=== PATIENT | male | born 1945 | race Caucasian/White ===

== ENCOUNTER 2023-04-12 14:26 | Inpatient (IN) | payer MEDICARE ==
[2023-04-12 23:39] VITALS: BMI 39.7
[2023-04-12] MEDS ORDERED: Ondansetron PF 4 MG/2 ML Vial IVP PRN (23:44)
[2023-04-12] MEDS ORDERED: Ondansetron ODT 4 MG TAB PO PRN (23:44)
[2023-04-12] MEDS ORDERED: Acetaminophen 325 MG TAB PO PRN (23:44)
[2023-04-13] MEDS ORDERED: Ipratropium/Albuterol 3 ML NEB NEB PRN (00:47)
[2023-04-13 00:57] LABS: #Monocytes 0.2 thou/uL (0.11-0.59); #Neutrophils 6.5 thou/uL (1.40-6.50); %Basophils 0.1 % (0.0-1.0); %Lymphocytes 11.4 % (21.0-51.0); %Monocytes 2.7 % (0.0-10.0); %Neutrophils 84.9 % (42.0-75.0); Hematocrit 42.1 % (42.0-52.0); Hemoglobin 13.3 g/dL (14.0-18.0); Mean Corpuscular HGB CONC 31.6 g/dL (32.0-36.0); Mean Corpuscular Hemoglobin 26.7 pg (27.0-31.0); Mean Corpuscular Volume 84.5 fl (78.0-98.0); Mean Platelet Volume 9.8 fL (7.4-10.4); Platelet Count 239 10x3/uL (130-400); RBC Distribution Width 15.4 % (11.5-14.5); Red Blood Cell (RBC) Count 4.98 mill/uL (4.70-6.10); White Blood Cell (WBC) Count 7.7 10x3/uL (4.8-10.8)
[2023-04-13 01:26] LABS: Anion Gap 14 mmol/L (10-20); BUN (Urea Nitrogen) 23 mg/dL (8.4-25.7); Calc. Creatinine Clearance 115 mL/min (70-130); Calcium 9.2 mg/dL (7.8-10.44); Carbon Dioxide 28 mmol/L (23-31); Chloride 97 mmol/L (98-107); Estimated GFR 86; Glucose 212 mg/dL (83-110); Potassium 4.9 mmol/L (3.5-5.1); Sodium 134 mmol/L (136-145)
[2023-04-13] MEDS ORDERED: Dextrose 50% Abboject 50 ML SYRINGE SLOW IVP PRN (01:36)
[2023-04-13] MEDS ORDERED: Dextrose 5% in Water 1,000 ML IV PRN (01:36)
[2023-04-13] MEDS ORDERED: Glucagon 1 MG/ML KIT IM PRN (01:36)
[2023-04-13] MEDS ORDERED: HumaLOG 300 UNITS/3 ML VIAL SC PRN (01:36)
[2023-04-13] MEDS: HumaLOG 300 UNITS/3 ML VIAL SC PRN (06:01)
[2023-04-13] MEDS: Furosemide 20 MG (2 mL) VIAL SLOW IVP SCH ×2 (06:02→15:00)
[2023-04-13 07:32] LABS: INR-International Normal Ratio 1.5; Prothrombin Time 18.7 sec (12.0-14.7)
[2023-04-13] MEDS ORDERED: FLU VACC QS2023(65UP)/MF59C/PF 60 MCG/0.5 ML SYRINGE IM ONE (09:00)
[2023-04-13] MEDS: HumaLOG 300 UNITS/3 ML VIAL SC SCH ×3 (10:05→18:10)
[2023-04-13] MEDS: Amlodipine 10 MG TAB PO SCH (10:08)
[2023-04-13] MEDS: Alogliptin 25 MG TAB PO SCH (10:08)
[2023-04-13] MEDS: Atorvastatin Calcium 10 MG TAB PO SCH (10:09)
[2023-04-13] MEDS: Valsartan 80 MG TAB PO SCH (10:09)
[2023-04-13] MEDS: Brimonidine Tartrate 0.2% Ophth Soln 5 ml Bottle EA EYE SCH ×2 (10:11→20:54)
[2023-04-13] MEDS: Dorzolamide HCl 2% Ophth (10 mL) Bottle EA EYE SCH ×3 (10:12→20:55)
[2023-04-13] MEDS: Timolol 0.5% Ophth Soln 5 ml Bottle EA EYE SCH ×2 (10:12→20:54)
[2023-04-13] MEDS ORDERED: Furosemide 40 MG (4 mL) VIAL SLOW IVP SCH (14:45)
[2023-04-13] MEDS ORDERED: Warfarin Sodium 2 MG TAB PO SCH (17:00)
[2023-04-13] MEDS ORDERED: Warfarin Sodium 3 MG TAB PO SCH (17:00)
[2023-04-13] MEDS: Latanoprost 0.005% Ophth Soln 2.5 ml Bottle EA EYE SCH (20:54)
[2023-04-14] MEDS: Furosemide 40 MG (4 mL) VIAL SLOW IVP SCH ×2 (05:47→14:43)
[2023-04-14 05:51] LABS: #Eosinphils 0.2 thou/uL (0.0-0.7); #Monocytes 0.9 thou/uL (0.11-0.59); #Neutrophils 6.8 thou/uL (1.40-6.50); %Basophils 0.3 % (0.0-1.0); %Eosinophils 1.6 % (0.0-10.0); %Lymphocytes 17.2 % (21.0-51.0); %Monocytes 8.9 % (0.0-10.0); %Neutrophils 71.3 % (42.0-75.0); Hematocrit 44.3 % (42.0-52.0); Mean Corpuscular HGB CONC 31.6 g/dL (32.0-36.0); Mean Corpuscular Hemoglobin 26.7 pg (27.0-31.0); Mean Corpuscular Volume 84.4 fl (78.0-98.0); Mean Platelet Volume 9.8 fL (7.4-10.4); Platelet Count 249 10x3/uL (130-400); RBC Distribution Width 15.8 % (11.5-14.5); Red Blood Cell (RBC) Count 5.25 mill/uL (4.70-6.10); White Blood Cell (WBC) Count 9.6 10x3/uL (4.8-10.8)
[2023-04-14 05:58] LABS: INR-International Normal Ratio 1.3; Prothrombin Time 16.5 sec (12.0-14.7)
[2023-04-14 07:02] LABS: Calcium 9.4 mg/dL (7.8-10.44); Chloride 95 mmol/L (98-107); Potassium 4.2 mmol/L (3.5-5.1); Sodium 138 mmol/L (136-145)
[2023-04-14 07:03] LABS: Glucose 145 mg/dL (83-110)
[2023-04-14 07:04] LABS: Anion Gap 11 mmol/L (10-20); Carbon Dioxide 36 mmol/L (23-31)
[2023-04-14 07:06] LABS: Calc. Creatinine Clearance 113 mL/min (70-130); Estimated GFR 84
[2023-04-14 07:07] LABS: BUN (Urea Nitrogen) 25 mg/dL (8.4-25.7)
[2023-04-14] MEDS: HumaLOG 300 UNITS/3 ML VIAL SC SCH ×3 (09:40→18:09)
[2023-04-14] MEDS: Valsartan 80 MG TAB PO SCH (09:40)
[2023-04-14] MEDS: Atorvastatin Calcium 10 MG TAB PO SCH (09:41)
[2023-04-14] MEDS: Brimonidine Tartrate 0.2% Ophth Soln 5 ml Bottle EA EYE SCH ×2 (09:41→23:06)
[2023-04-14] MEDS: Alogliptin 25 MG TAB PO SCH (09:41)
[2023-04-14] MEDS: Dorzolamide HCl 2% Ophth (10 mL) Bottle EA EYE SCH ×3 (09:41→23:06)
[2023-04-14] MEDS: Amlodipine 10 MG TAB PO SCH (09:41)
[2023-04-14] MEDS: Timolol 0.5% Ophth Soln 5 ml Bottle EA EYE SCH ×2 (09:42→23:06)
[2023-04-14] MEDS ORDERED: Warfarin Sodium 3 MG TAB PO SCH (17:00)
[2023-04-14] MEDS: HumaLOG 300 UNITS/3 ML VIAL SC PRN (18:12)
[2023-04-14] MEDS: Ipratropium/Albuterol 3 ML NEB NEB SCH ×2 (19:11→23:48)
[2023-04-14] MEDS: Latanoprost 0.005% Ophth Soln 2.5 ml Bottle EA EYE SCH (23:06)
[2023-04-15] MEDS: Ipratropium/Albuterol 3 ML NEB NEB SCH ×3 (06:29→19:23)
[2023-04-15 06:49] LABS: #Eosinphils 0.1 thou/uL (0.0-0.7); #Monocytes 0.8 thou/uL (0.11-0.59); #Neutrophils 5.7 thou/uL (1.40-6.50); %Basophils 0.2 % (0.0-1.0); %Eosinophils 1.6 % (0.0-10.0); %Lymphocytes 19.6 % (21.0-51.0); %Monocytes 9.8 % (0.0-10.0); %Neutrophils 68.2 % (42.0-75.0); Hematocrit 42.9 % (42.0-52.0); Hemoglobin 13.4 g/dL (14.0-18.0); Mean Corpuscular HGB CONC 31.2 g/dL (32.0-36.0); Mean Corpuscular Hemoglobin 26.5 pg (27.0-31.0); Mean Corpuscular Volume 84.8 fl (78.0-98.0); Mean Platelet Volume 9.5 fL (7.4-10.4); Platelet Count 216 10x3/uL (130-400); RBC Distribution Width 15.6 % (11.5-14.5); Red Blood Cell (RBC) Count 5.06 mill/uL (4.70-6.10); White Blood Cell (WBC) Count 8.3 10x3/uL (4.8-10.8)
[2023-04-15] MEDS: Furosemide 40 MG (4 mL) VIAL SLOW IVP SCH ×2 (06:54→15:31)
[2023-04-15 07:03] LABS: INR-International Normal Ratio 1.2; Prothrombin Time 15.4 sec (12.0-14.7)
[2023-04-15 07:17] LABS: Anion Gap 11 mmol/L (10-20); BUN (Urea Nitrogen) 29 mg/dL (8.4-25.7); Calc. Creatinine Clearance 107 mL/min (70-130); Calcium 9.3 mg/dL (7.8-10.44); Carbon Dioxide 34 mmol/L (23-31); Cardiac Risk 3.7 (Less than 4.5); Chloride 95 mmol/L (98-107); Cholesterol 115 mg/dl (< 200 Desired); Estimated GFR 79; Glucose 168 mg/dL (83-110); HDL Cholesterol 31 mg/dL (>60 Neg Risk); LDL Cholesterol, Calculated 67 mg/dL; Sodium 136 mmol/L (136-145); Triglycerides 84 mg/dL (Less than 150)
[2023-04-15] MEDS ORDERED: hydrALAZINE 20 MG/ML VIAL SLOW IVP PRN (08:33)
[2023-04-15] MEDS: Amlodipine 10 MG TAB PO SCH (09:10)
[2023-04-15] MEDS: Alogliptin 25 MG TAB PO SCH (09:10)
[2023-04-15] MEDS: HumaLOG 300 UNITS/3 ML VIAL SC SCH ×3 (09:10→18:48)
[2023-04-15] MEDS: Atorvastatin Calcium 10 MG TAB PO SCH (09:10)
[2023-04-15] MEDS: Valsartan 80 MG TAB PO SCH (09:10)
[2023-04-15] MEDS: Brimonidine Tartrate 0.2% Ophth Soln 5 ml Bottle EA EYE SCH ×2 (09:11→20:23)
[2023-04-15] MEDS: Dorzolamide HCl 2% Ophth (10 mL) Bottle EA EYE SCH ×3 (09:11→20:23)
[2023-04-15] MEDS: Timolol 0.5% Ophth Soln 5 ml Bottle EA EYE SCH ×2 (09:11→20:24)
[2023-04-15] MEDS: metFORMIN 500 MG TAB PO SCH (19:33)
[2023-04-15] MEDS: Latanoprost 0.005% Ophth Soln 2.5 ml Bottle EA EYE SCH (20:23)
[2023-04-15] MEDS: Heparin 5,000 UNITS/ML VIAL SC SCH (20:23)
[2023-04-16] MEDS: Ipratropium/Albuterol 3 ML NEB NEB SCH ×4 (00:50→19:03)
[2023-04-16 04:22] LABS: #Eosinphils 0.2 thou/uL (0.0-0.7); #Monocytes 0.9 thou/uL (0.11-0.59); #Neutrophils 5.2 thou/uL (1.40-6.50); %Basophils 0.4 % (0.0-1.0); %Eosinophils 2.3 % (0.0-10.0); %Lymphocytes 25.4 % (21.0-51.0); %Monocytes 10.2 % (0.0-10.0); %Neutrophils 61.1 % (42.0-75.0); Hematocrit 45.4 % (42.0-52.0); Hemoglobin 13.9 g/dL (14.0-18.0); Mean Corpuscular HGB CONC 30.6 g/dL (32.0-36.0); Mean Corpuscular Hemoglobin 25.8 pg (27.0-31.0); Mean Corpuscular Volume 84.4 fl (78.0-98.0); Mean Platelet Volume 9.9 fL (7.4-10.4); Platelet Count 224 10x3/uL (130-400); RBC Distribution Width 15.5 % (11.5-14.5); Red Blood Cell (RBC) Count 5.38 mill/uL (4.70-6.10); White Blood Cell (WBC) Count 8.4 10x3/uL (4.8-10.8)
[2023-04-16 04:49] LABS: INR-International Normal Ratio 1.1; Prothrombin Time 14.4 sec (12.0-14.7)
[2023-04-16 04:55] LABS: Anion Gap 17 mmol/L (10-20); BUN (Urea Nitrogen) 33 mg/dL (8.4-25.7); Calc. Creatinine Clearance 91 mL/min (70-130); Calcium 9.5 mg/dL (7.8-10.44); Carbon Dioxide 32 mmol/L (23-31); Chloride 94 mmol/L (98-107); Estimated GFR 64; Glucose 140 mg/dL (83-110); Potassium 4.8 mmol/L (3.5-5.1); Sodium 138 mmol/L (136-145)
[2023-04-16] MEDS: Furosemide 40 MG (4 mL) VIAL SLOW IVP SCH (05:33)
[2023-04-16] MEDS: Heparin 5,000 UNITS/ML VIAL SC SCH ×2 (08:43→20:50)
[2023-04-16] MEDS: metFORMIN 500 MG TAB PO SCH ×2 (08:43→17:55)
[2023-04-16] MEDS: Atorvastatin Calcium 10 MG TAB PO SCH (08:43)
[2023-04-16] MEDS: Amlodipine 10 MG TAB PO SCH (08:43)
[2023-04-16] MEDS: Valsartan 80 MG TAB PO SCH (08:44)
[2023-04-16] MEDS: Alogliptin 25 MG TAB PO SCH (08:44)
[2023-04-16] MEDS: Timolol 0.5% Ophth Soln 5 ml Bottle EA EYE SCH ×2 (08:44→20:52)
[2023-04-16] MEDS: Brimonidine Tartrate 0.2% Ophth Soln 5 ml Bottle EA EYE SCH ×2 (08:45→20:51)
[2023-04-16] MEDS: Dorzolamide HCl 2% Ophth (10 mL) Bottle EA EYE SCH ×3 (08:45→20:52)
[2023-04-16] MEDS: HumaLOG 300 UNITS/3 ML VIAL SC SCH ×3 (08:45→17:55)
[2023-04-16] MEDS: Latanoprost 0.005% Ophth Soln 2.5 ml Bottle EA EYE SCH (20:52)
[2023-04-17] MEDS: Ipratropium/Albuterol 3 ML NEB NEB SCH ×4 (00:44→19:04)
[2023-04-17 05:14] LABS: #Eosinphils 0.2 thou/uL (0.0-0.7); #Monocytes 0.8 thou/uL (0.11-0.59); #Neutrophils 5.9 thou/uL (1.40-6.50); %Basophils 0.2 % (0.0-1.0); %Eosinophils 2.2 % (0.0-10.0); %Lymphocytes 21.5 % (21.0-51.0); %Neutrophils 66.4 % (42.0-75.0); Hematocrit 43.9 % (42.0-52.0); Hemoglobin 13.9 g/dL (14.0-18.0); Mean Corpuscular HGB CONC 31.7 g/dL (32.0-36.0); Mean Corpuscular Hemoglobin 26.6 pg (27.0-31.0); Mean Corpuscular Volume 84.1 fl (78.0-98.0); Mean Platelet Volume 10.1 fL (7.4-10.4); Platelet Count 205 10x3/uL (130-400); RBC Distribution Width 15.4 % (11.5-14.5); Red Blood Cell (RBC) Count 5.22 mill/uL (4.70-6.10); White Blood Cell (WBC) Count 8.9 10x3/uL (4.8-10.8)
[2023-04-17 05:25] LABS: Prothrombin Time 13.7 sec (12.0-14.7)
[2023-04-17 05:39] LABS: Anion Gap 15 mmol/L (10-20); BUN (Urea Nitrogen) 36 mg/dL (8.4-25.7); Calc. Creatinine Clearance 109 mL/min (70-130); Calcium 9.7 mg/dL (7.8-10.44); Carbon Dioxide 30 mmol/L (23-31); Chloride 95 mmol/L (98-107); Estimated GFR 81; Glucose 165 mg/dL (83-110); Sodium 136 mmol/L (136-145)
[2023-04-17] MEDS ORDERED: Regadenoson 0.4 MG/5 ML SYRINGE ONE (09:34)
[2023-04-17] MEDS: Alogliptin 25 MG TAB PO SCH (11:01)
[2023-04-17] MEDS: Amlodipine 10 MG TAB PO SCH (11:01)
[2023-04-17] MEDS: Valsartan 80 MG TAB PO SCH ×2 (11:01→21:40)
[2023-04-17] MEDS: metFORMIN 500 MG TAB PO SCH ×2 (11:01→18:03)
[2023-04-17] MEDS: Atorvastatin Calcium 10 MG TAB PO SCH (11:02)
[2023-04-17] MEDS: HumaLOG 300 UNITS/3 ML VIAL SC SCH ×3 (11:02→18:03)
[2023-04-17] MEDS: Heparin 5,000 UNITS/ML VIAL SC SCH ×2 (11:03→21:40)
[2023-04-17] MEDS: Furosemide 40 MG (4 mL) VIAL SLOW IVP SCH (11:03)
[2023-04-17] MEDS: Timolol 0.5% Ophth Soln 5 ml Bottle EA EYE SCH ×2 (11:04→21:42)
[2023-04-17] MEDS: Brimonidine Tartrate 0.2% Ophth Soln 5 ml Bottle EA EYE SCH ×2 (11:04→21:41)
[2023-04-17] MEDS: Dorzolamide HCl 2% Ophth (10 mL) Bottle EA EYE SCH ×3 (11:05→21:43)
[2023-04-17] MEDS: Latanoprost 0.005% Ophth Soln 2.5 ml Bottle EA EYE SCH (21:43)
[2023-04-18] MEDS: Ipratropium/Albuterol 3 ML NEB NEB SCH ×4 (01:11→18:28)
[2023-04-18 06:26] LABS: Prothrombin Time 13.6 sec (12.0-14.7)
[2023-04-18] MEDS: HumaLOG 300 UNITS/3 ML VIAL SC SCH ×3 (08:45→18:46)
[2023-04-18] MEDS: Furosemide 40 MG (4 mL) VIAL SLOW IVP SCH (08:46)
[2023-04-18] MEDS: Atorvastatin Calcium 10 MG TAB PO SCH (08:46)
[2023-04-18] MEDS: Amlodipine 10 MG TAB PO SCH (08:46)
[2023-04-18] MEDS: Alogliptin 25 MG TAB PO SCH (08:46)
[2023-04-18] MEDS: Valsartan 80 MG TAB PO SCH ×2 (08:46→21:25)
[2023-04-18] MEDS: metFORMIN 500 MG TAB PO SCH ×2 (08:46→16:15)
[2023-04-18] MEDS: Brimonidine Tartrate 0.2% Ophth Soln 5 ml Bottle EA EYE SCH ×2 (08:47→21:26)
[2023-04-18] MEDS: Dorzolamide HCl 2% Ophth (10 mL) Bottle EA EYE SCH ×3 (08:47→21:26)
[2023-04-18] MEDS: Heparin 5,000 UNITS/ML VIAL SC SCH ×2 (08:48→21:25)
[2023-04-18] MEDS: Timolol 0.5% Ophth Soln 5 ml Bottle EA EYE SCH ×2 (08:48→21:27)
[2023-04-18 09:54] LABS: Anion Gap 13 mmol/L (10-20); BUN (Urea Nitrogen) 36 mg/dL (8.4-25.7); Calc. Creatinine Clearance 91 mL/min (70-130); Carbon Dioxide 30 mmol/L (23-31); Chloride 95 mmol/L (98-107); Estimated GFR 64; Glucose 275 mg/dL (83-110); Potassium 4.3 mmol/L (3.5-5.1); Sodium 134 mmol/L (136-145)
[2023-04-18] MEDS ORDERED: Insulin Glargine 30 UNITS/0.3 ML VIAL SC SCH (15:45)
[2023-04-18] MEDS: Latanoprost 0.005% Ophth Soln 2.5 ml Bottle EA EYE SCH (21:27)
[2023-04-19] MEDS: Ipratropium/Albuterol 3 ML NEB NEB SCH ×5 (00:51→23:56)
[2023-04-19 07:58] LABS: Anion Gap 12 mmol/L (10-20); BUN (Urea Nitrogen) 35 mg/dL (8.4-25.7); Calc. Creatinine Clearance 100 mL/min (70-130); Calcium 9.2 mg/dL (7.8-10.44); Carbon Dioxide 29 mmol/L (23-31); Chloride 98 mmol/L (98-107); Estimated GFR 73; Glucose 166 mg/dL (83-110); Potassium 4.1 mmol/L (3.5-5.1); Sodium 135 mmol/L (136-145)
[2023-04-19] MEDS: Valsartan 80 MG TAB PO SCH ×2 (09:14→21:13)
[2023-04-19] MEDS: Alogliptin 25 MG TAB PO SCH (09:14)
[2023-04-19] MEDS: Atorvastatin Calcium 10 MG TAB PO SCH (09:14)
[2023-04-19] MEDS: Amlodipine 10 MG TAB PO SCH (09:14)
[2023-04-19] MEDS: metFORMIN 500 MG TAB PO SCH ×2 (09:14→16:22)
[2023-04-19] MEDS: Furosemide 40 MG (4 mL) VIAL SLOW IVP SCH (09:15)
[2023-04-19] MEDS: Heparin 5,000 UNITS/ML VIAL SC SCH ×2 (09:15→21:13)
[2023-04-19] MEDS: HumaLOG 300 UNITS/3 ML VIAL SC SCH ×3 (09:16→16:22)
[2023-04-19] MEDS: Insulin Glargine 30 UNITS/0.3 ML VIAL SC SCH (09:16)
[2023-04-19] MEDS: Timolol 0.5% Ophth Soln 5 ml Bottle EA EYE SCH ×2 (09:17→21:15)
[2023-04-19] MEDS: Dorzolamide HCl 2% Ophth (10 mL) Bottle EA EYE SCH ×3 (09:17→21:15)
[2023-04-19] MEDS: Brimonidine Tartrate 0.2% Ophth Soln 5 ml Bottle EA EYE SCH ×2 (09:20→21:16)
[2023-04-19] MEDS: Latanoprost 0.005% Ophth Soln 2.5 ml Bottle EA EYE SCH (21:14)
[2023-04-20 06:13] LABS: Prothrombin Time 13.2 sec (12.0-14.7)
[2023-04-20] MEDS ORDERED: Furosemide 40 MG TAB PO SCH (07:30)
[2023-04-20] MEDS: Ipratropium/Albuterol 3 ML NEB NEB SCH ×2 (07:58→13:03)
[2023-04-20 08:30] VITALS: TEMP 97.7
[2023-04-20] MEDS: Alogliptin 25 MG TAB PO SCH (08:54)
[2023-04-20] MEDS: Atorvastatin Calcium 10 MG TAB PO SCH (08:54)
[2023-04-20] MEDS: Valsartan 80 MG TAB PO SCH (08:54)
[2023-04-20] MEDS: metFORMIN 500 MG TAB PO SCH (08:54)
[2023-04-20] MEDS: Amlodipine 10 MG TAB PO SCH (08:54)
[2023-04-20] MEDS: Heparin 5,000 UNITS/ML VIAL SC SCH (08:55)
[2023-04-20] MEDS: HumaLOG 300 UNITS/3 ML VIAL SC SCH ×2 (08:55→12:48)
[2023-04-20] MEDS: Dorzolamide HCl 2% Ophth (10 mL) Bottle EA EYE SCH (08:55)
[2023-04-20] MEDS: Timolol 0.5% Ophth Soln 5 ml Bottle EA EYE SCH (08:55)
[2023-04-20] MEDS: Brimonidine Tartrate 0.2% Ophth Soln 5 ml Bottle EA EYE SCH (08:57)
[2023-04-20] MEDS: Insulin Glargine 30 UNITS/0.3 ML VIAL SC SCH (08:57)
[2023-04-20 11:31] LABS: Anion Gap 10 mmol/L (10-20); BUN (Urea Nitrogen) 37 mg/dL (8.4-25.7); Calc. Creatinine Clearance 93 mL/min (70-130); Calcium 9.1 mg/dL (7.8-10.44); Carbon Dioxide 29 mmol/L (23-31); Chloride 97 mmol/L (98-107); Estimated GFR 67; Glucose 292 mg/dL (83-110); Potassium 4.3 mmol/L (3.5-5.1); Sodium 132 mmol/L (136-145)
[2023-04-20 11:45] VITALS: BP 128/44
== END 2023-04-20 15:11 | disposition home or self-care (01) | DRG 291 ==
LOC: T4-A 22:42 → OBSVTOIN 23:44 → 2SE 04-15 11:32
PROVIDERS: ADMIT Hospitalist; ATTEND Internal Medicine
DX: I11.0 Hypertensive heart disease with heart failure (principal); I50.33 Acute on chronic diastolic (congestive) heart failure; J96.01 Acute respiratory failure with hypoxia; I80.10 Phlebitis and thrombophlebitis of unspecified femoral vein; E11.9 Type 2 diabetes mellitus without complications; E78.5 Hyperlipidemia, unspecified; E66.01 Morbid (severe) obesity due to excess calories; Z68.39 Body mass index [BMI] 39.0-39.9, adult; Z79.84 Long term (current) use of oral hypoglycemic drugs; Z79.899 Other long term (current) drug therapy; Z79.4 Long term (current) use of insulin; Z79.01 Long term (current) use of anticoagulants; Z98.890 Other specified postprocedural states; Z87.891 Personal history of nicotine dependence
CPT/HCPCS: 36415; 36416; 71045; 78452; 80048; 80053; 80061; 83036; 83880; 84145; 85025; 85610; 87804; 90471; 90694; 93005; 93010; 93017; 93306; 93970; 94640; A9502; G0008; J1644; J1815; J1940; J2785; J7620